=== PATIENT | female | born 1965 | race Caucasian/White ===

== ENCOUNTER 2018-04-16 21:42 | Emergency (ER) | payer SELFPAY ==
--- NOTE | 2018-04-16 22:49 | ER Document Report ---
ED General - General Chief Complaint: Dizziness Stated Complaint: BLURRED VISION,DIZZY Time Seen by Provider: 04/16/18 22:44 Mode of Arrival: Ambulatory Information source: Patient Notes: Patient is a 52-year-old female who presents with chief complaint of chest pain , heaviness in her right arm while cooking dinner as well as some transient blurred vision. Patient reports that over the last few days she has been having random numbness and tingling to her bilateral legs as well as shortness of breath and midsternal chest pain. Patient reports she has not seen a physician in quite some time. Patient reports that her only past medical history is hypothyroidism for which she used to take Synthroid. Patient reports that the last doctor she saw 2 years ago took her off of the Synthroid is reported that she does not need to take it anymore. Patient denies any cardiac history. Patient reports smoking half a pack a day. TRAVEL OUTSIDE OF THE [place] IN LAST 30 DAYS: No COUNTRY TRAVELED TO/FROM: N - Related Data Allergies/Adverse Reactions: morphine Allergy (Verified 04/16/18 21:48) Past Medical History - General Information source: Patient - Social History Smoking Status: Current Every Day Smoker Chew tobacco use (# tins/day): No Frequency of alcohol use: Rare Drug Abuse: None Lives with: Family Family History: Reviewed & Not Pertinent Patient has suicidal ideation: No Patient has homicidal ideation: No Endocrine Medical History: Reports: Hx Hypothyroidism Renal/ Medical History: Denies: Hx Peritoneal Dialysis Past Surgical History: Reports: Hx Appendectomy, Hx Tubal Ligation - Immunizations Immunizations up to date: Yes Review of Systems - Review of Systems Constitutional: See HPI EENT: No symptoms reported Cardiovascular: No symptoms reported Respiratory: See HPI Gastrointestinal: See HPI Genitourinary: No symptoms reported Female Genitourinary: No symptoms reported Musculoskeletal: No symptoms reported Skin: No symptoms reported Hematologic/Lymphatic: No symptoms reported Neurological/Psychological: No symptoms reported Physical Exam - Vital signs Vitals: Temp Pulse Resp BP Pulse Ox 98.5 F 109 H 21 H 121/86 H 97 04/16/18 21:51 04/16/18 21:51 04/16/18 21:51 04/16/18 21:51 04/16/18 21:51 - Notes Notes: PHYSICAL EXAMINATION: GENERAL: Well-appearing, well-nourished and in no acute distress. HEAD: Atraumatic, normocephalic. EYES: Pupils equal round and reactive to light, extraocular movements intact, conjunctiva are normal. ENT: Nares patent, oropharynx clear without exudates. Moist mucous membranes. NECK: Normal range of motion, supple without lymphadenopathy LUNGS: Breath sounds clear to auscultation bilaterally and equal. No wheezes rales or rhonchi. HEART: Regular rate and rhythm without murmurs ABDOMEN: Soft, nontender, nondistended abdomen. No guarding, no rebound. No masses appreciated. Female : deferred Musculoskeletal: Normal range of motion, no pitting or edema. No cyanosis. NEUROLOGICAL: Cranial nerves grossly intact. Normal speech, normal gait. Normal sensory, motor exams PSYCH: Normal mood, normal affect. SKIN: Warm, Dry, normal turgor, no rashes or lesions noted. Course - Re-evaluation Re-evalutation: Otherwise healthy 52-year-old female presents with multiple complaints, see HPI. On my evaluation, patient is alert, oriented and not in any distress. Physical examination is unremarkable. Patient will have chest pain workup done and I will also add on a TSH as patient reports she was taken off of her Synthroid 2 years ago. Given patient's vague symptoms of transient blurred vision yesterday as well as heaviness in her right arm with intermittent tingling to her legs over the last few days, I am suspicious that her TSH may be elevated. Initial EKG is a sinus rhythm with a rate of 71, right bundle branch block. We do not have an old EKG on file. Dr. Holt is requesting a right-sided EKG. Right-sided EKG done and there is no change. Patient currently chest pain- free. Laboratory workup reveals a normal CBC, normal comprehensive metabolic panel, first troponin is negative. Urinalysis is unremarkable for any signs of infection. TSH is 10.4. Plan to check a delta troponin. Patient does remain chest pain-free, patient has has not had any chest pain since she checked into the department. Repeat troponin is also negative. Patient's heart score is 1. Patient will be discharged home in stable condition with plans to follow-up with primary care regarding her elevation in her TSH. Patient's vital signs have been stable during her stay and patient is in agreement with this plan. Patient denies any questions or concerns. - Vital Signs Vital signs: Temp Pulse Resp BP Pulse Ox 98.6 F 88 16 118/72 98 04/17/18 05:23 04/17/18 05:23 04/17/18 05:23 04/17/18 05:23 04/17/18 05:23 - Laboratory Result Diagrams: 04/16/18 23:21 04/16/18 23:59 Laboratory results interpreted by me: 04/16/18 04/16/18 04/16/18 23:21 23:59 23:59 WBC 11.6 H Basophils % 2.4 H Absolute Basophils 0.3 H Chloride 112 H TSH 10.40 H Discharge - Discharge Clinical Impression: Dizzy Chest pain Qualifiers: Chest pain type: unspecified Qualified Code(s): R07.9 - Chest pain, unspecified Condition: Stable Disposition: HOME, SELF-CARE Additional Instructions: Chest Pain of Unclear Cause The exact cause of your chest pain isn't clear. Fortunately, there is no evidence of a dangerous medical condition. Further testing may be required to find the source of the pain. Most often, we find that this pain is coming from the chest wall -- the muscles or rib joints in the chest. But chest pain can come from the lung and lung lining, the esophagus, the heart valves or heart lining, and even the stomach or gallbladder. Rest. Eat lightly until the pain is gone. We may prescribe medicine for pain and inflammation. You should call the physician immediately if the pain radiates to the shoulder, jaw or arms; if you start to run a fever or develop a cough; or if you develop shortness of breath, or other new or alarming symptoms. Your TSH level today was elevated. This is your thyroid-stimulating hormone. It is very important that you follow-up with a primary care provider for further evaluation of this issue may need to be placed back on your Synthroid medication that you were taken off of 2 years ago. Please return to the emergency department for any further concerns. Referrals: [facility] [NO LOCAL MD] - Follow up as needed [facility] [Provider Group] - Follow up as needed
[2018-04-16] MEDS ORDERED: NORMAL SALINE 1000 ML 1,000 ML IV ONE (22:50)
[2018-04-16 23:40] LABS: ABSOLUTE BASOPHILS # (AUTO) 0.3 10^3/uL (0.0-0.2); ABSOLUTE EOSINOPHILS # (AUTO) 0.4 10^3/uL (0.0-0.6); ABSOLUTE MONOCYTES (AUTO) 1.1 10^3/uL (0.1-1.4); ABSOLUTE NEUT (AUTO) 5.8 10^3/uL (1.7-8.2); BASOPHILS % (AUTO) 2.4 % (0-2); EOSINOPHILS % (AUTO) 3.1 % (0-6); HEMATOCRIT 43.7 % (36.0-47.0); HEMOGLOBIN 14.9 g/dL (12.0-15.5); LYMPHOCYTES % (AUTO) 34.9 % (13-45); MEAN CORPUSCULAR HEMOGLOBIN 30.7 pg (27.0-33.4); MEAN CORPUSCULAR HGB CONC 34.2 g/dL (32.0-36.0); MEAN CORPUSCULAR VOLUME 90 fl (80-97); MONOCYTES % (AUTO) 9.2 % (3-13); PLATELET COUNT 278 10^3/uL (150-450); RED BLOOD COUNT 4.87 10^6/uL (3.72-5.28); RED CELL DISTRIBUTION WIDTH 13.5 % (11.5-14.0); SEGMENTED NEUTROPHILS % (AUTO) 50.4 % (42-78); TOTAL CELLS COUNTED % (AUTO) 100 %; WHITE BLOOD COUNT 11.6 10^3/uL (4.0-10.5)
[2018-04-16 23:51] LABS: APPEARANCE,URINE SLIGHTLY-CLOUDY; BILIRUBIN,URINE NEGATIVE (NEGATIVE); COLOR,URINE YELLOW; GLUCOSE, URINE NEGATIVE (NEGATIVE); KETONES,URINE NEGATIVE (NEGATIVE); LEUKOCYTE ESTERASE,URINE NEGATIVE (NEGATIVE); NITRITE,URINE NEGATIVE (NEGATIVE); PROTEIN,URINE NEGATIVE (NEGATIVE); URINE SPECIFIC GRAVITY 1.013; UROBILINOGEN,URINE NEGATIVE mg/dL (<2.0)
[2018-04-17 00:29] LABS: ALANINE AMINOTRANSFERASE 18 U/L (9-52); ALBUMIN 3.7 g/dL (3.5-5.0); ALKALINE PHOSPHATASE 91 U/L (38-126); ANION GAP 8 (5-19); ASPARTATE AMINO TRANSFERASE 18 U/L (14-36); BILIRUBIN,DIRECT 0.3 mg/dL (0.0-0.4); BILIRUBIN,TOTAL 0.3 mg/dL (0.2-1.3); BLOOD UREA NITROGEN 9 mg/dL (7-20); CALCIUM 9.5 mg/dL (8.4-10.2); CARBON DIOXIDE 22 mmol/L (22-30); CHLORIDE 112 mmol/L (98-107); CREATINE KINASE 35 U/L (30-135); GLUCOSE 91 mg/dL (75-110); POTASSIUM 4.4 mmol/L (3.6-5.0); SODIUM 141.9 mmol/L (137-145); TOTAL PROTEIN 6.6 g/dL (6.3-8.2)
[2018-04-17 01:12] LABS: CREATINE KINASE MB 0.23 ng/mL (<4.55)
[2018-04-17 01:17] LABS: TROPONIN I < 0.012 ng/mL
[2018-04-17 05:24] VITALS: BP 118/72
--- NOTE | 2018-04-17 21:40 | EKG REPORT ---
SEVERITY:- ABNORMAL ECG - SINUS RHYTHM RIGHT BUNDLE BRANCH BLOCK : Confirmed by: Lamar Lisa MD 17-Apr-2018 21:39:32
--- NOTE | 2018-04-17 21:41 | EKG REPORT ---
SEVERITY:- ABNORMAL ECG - SINUS RHYTHM RBBB AND LPFB : Confirmed by: Lamar Lisa MD 17-Apr-2018 21:40:48
--- NOTE | 2018-04-17 21:41 | EKG REPORT ---
SEVERITY:- ABNORMAL ECG - SINUS RHYTHM PROBABLE LEFT ATRIAL ABNORMALITY RBBB AND LPFB : Confirmed by: Lamar Lisa MD 17-Apr-2018 21:41:08
== END 2018-04-17 05:26 | disposition home or self-care (01) ==
LOC: ER 21:42
DX: R07.9 Chest pain, unspecified (principal); R94.6 Abnormal results of thyroid function studies; H53.8 Other visual disturbances; R20.0 Anesthesia of skin; R20.2 Paresthesia of skin; R06.02 Shortness of breath; I45.10 Unspecified right bundle-branch block; F17.200 Nicotine dependence, unspecified, uncomplicated; Z88.5 Allergy status to narcotic agent; Z86.39 Personal history of other endocrine, nutritional and metabolic disease
CPT/HCPCS: 93005 ×2; 99285; 36415; 82553; 82962; 82550; 84443; 85025; 80053; 81001; 84484; 93010 ×2; J7030

== ENCOUNTER → 2018-09-26 | Outpatient (CLI) | payer MEDICAID, OTHER ==
[2018-09-26 16:26] LABS: ABSOLUTE BASOPHILS # (AUTO) 0.2 10^3/uL (0.0-0.2); ABSOLUTE EOSINOPHILS # (AUTO) 0.4 10^3/uL (0.0-0.6); ABSOLUTE LYMPHOCYTES (AUTO) 3.1 10^3/uL (0.5-4.7); ABSOLUTE MONOCYTES (AUTO) 0.9 10^3/uL (0.1-1.4); ABSOLUTE NEUT (AUTO) 5.4 10^3/uL (1.7-8.2); BASOPHILS % (AUTO) 2.3 % (0-2); HEMATOCRIT 41.9 % (36.0-47.0); LYMPHOCYTES % (AUTO) 30.7 % (13-45); MEAN CORPUSCULAR HEMOGLOBIN 29.9 pg (27.0-33.4); MEAN CORPUSCULAR HGB CONC 33.4 g/dL (32.0-36.0); MEAN CORPUSCULAR VOLUME 89 fl (80-97); MONOCYTES % (AUTO) 9.1 % (3-13); PLATELET COUNT 264 10^3/uL (150-450); RED BLOOD COUNT 4.69 10^6/uL (3.72-5.28); RED CELL DISTRIBUTION WIDTH 14.4 % (11.5-14.0); SEGMENTED NEUTROPHILS % (AUTO) 53.9 % (42-78); TOTAL CELLS COUNTED % (AUTO) 100 %
== END ==
LOC: CCC 15:58
DX: E03.9 Hypothyroidism, unspecified (principal)
CPT/HCPCS: 36415; 84443; 85025

== ENCOUNTER 2018-10-31 12:03 | Emergency (ER) | payer SELFPAY ==
[2018-10-31] MEDS ORDERED: ASPIRIN 81 MG TABLET, CHEWABLE PO ONE (12:24)
--- NOTE | 2018-10-31 12:24 | ER Document Report ---
ED Medical Screen (RME) - General Chief Complaint: Chest Pain Stated Complaint: CHEST PAIN Time Seen by Provider: 10/31/18 12:17 Primary Care Provider: DICK NASH [Primary Care Provider] - Follow up as needed Mode of Arrival: Ambulatory Information source: Patient Notes: This is a 53-year-old female with a history of hypothyroidism, right bundle branch block who presents to the emergency room with constant retrosternal bandlike chest pressure since yesterday. She denies shortness of breath. She denies abdominal pain. She denies nausea. She denies any change with eating. She had garlic toast this morning without difficulty. Discomfort does not seem to be worsened with activity. Patient does have a history of having discomfort like this in the past last summer and had a cardiac workup in [place] which she reports was essentially normal. TRAVEL OUTSIDE OF THE [place] IN LAST 30 DAYS: No COUNTRY TRAVELED TO/FROM: N - Related Data Allergies/Adverse Reactions: morphine Allergy (Verified 04/16/18 21:48) Past Medical History Endocrine Medical History: Reports: Hx Hypothyroidism Renal/ Medical History: Denies: Hx Peritoneal Dialysis Past Surgical History: Reports: Hx Appendectomy, Hx Tubal Ligation - Immunizations Immunizations up to date: Yes Physical Exam - Vital signs Vitals: Temp Pulse Resp BP Pulse Ox 98.6 F 78 16 125/75 98 10/31/18 12:13 10/31/18 12:13 10/31/18 12:13 10/31/18 12:13 10/31/18 12:13 Course - Vital Signs Vital signs: Temp Pulse Resp BP Pulse Ox 98.6 F 78 16 125/75 98 10/31/18 12:13 10/31/18 12:13 10/31/18 12:13 10/31/18 12:13 10/31/18 12:13 Doctor's Discharge - Discharge Referrals: [facility] [Primary Care Provider] - Follow up as needed
[2018-10-31 13:09] LABS: ABSOLUTE BASOPHILS # (AUTO) 0.2 10^3/uL (0.0-0.2); ABSOLUTE EOSINOPHILS # (AUTO) 0.4 10^3/uL (0.0-0.6); ABSOLUTE LYMPHOCYTES (AUTO) 3.3 10^3/uL (0.5-4.7); ABSOLUTE MONOCYTES (AUTO) 0.8 10^3/uL (0.1-1.4); ABSOLUTE NEUT (AUTO) 5.1 10^3/uL (1.7-8.2); BASOPHILS % (AUTO) 2.5 % (0-2); EOSINOPHILS % (AUTO) 3.6 % (0-6); HEMOGLOBIN 15.4 g/dL (12.0-15.5); LYMPHOCYTES % (AUTO) 33.5 % (13-45); MEAN CORPUSCULAR HGB CONC 34.3 g/dL (32.0-36.0); MEAN CORPUSCULAR VOLUME 90 fl (80-97); MONOCYTES % (AUTO) 8.5 % (3-13); PLATELET COUNT 302 10^3/uL (150-450); RED BLOOD COUNT 4.98 10^6/uL (3.72-5.28); SEGMENTED NEUTROPHILS % (AUTO) 51.9 % (42-78); TOTAL CELLS COUNTED % (AUTO) 100 %; WHITE BLOOD COUNT 9.8 10^3/uL (4.0-10.5)
[2018-10-31 13:26] LABS: ALANINE AMINOTRANSFERASE 37 U/L (9-52); ALBUMIN 4.5 g/dL (3.5-5.0); ALKALINE PHOSPHATASE 105 U/L (38-126); ANION GAP 7 (5-19); ASPARTATE AMINO TRANSFERASE 52 U/L (14-36); BILIRUBIN,DIRECT 0.3 mg/dL (0.0-0.4); BILIRUBIN,TOTAL 0.4 mg/dL (0.2-1.3); BLOOD UREA NITROGEN 9 mg/dL (7-20); CALCIUM 10.4 mg/dL (8.4-10.2); CARBON DIOXIDE 26 mmol/L (22-30); CHLORIDE 109 mmol/L (98-107); CREATINE KINASE 59 U/L (30-135); GLUCOSE 98 mg/dL (75-110); POTASSIUM 4.5 mmol/L (3.6-5.0); SODIUM 142.1 mmol/L (137-145); TOTAL PROTEIN 7.3 g/dL (6.3-8.2)
--- NOTE | 2018-10-31 13:30 | RADIOLOGY REPORT (SQ) ---
EXAM DESCRIPTION: CHEST SINGLE VIEW COMPLETED DATE/TIME: 10/31/2018 1:21 pm REASON FOR STUDY: chest pain COMPARISON: None. EXAM PARAMETERS: NUMBER OF VIEWS: One view. TECHNIQUE: Single frontal radiographic view of the chest acquired. RADIATION DOSE: NA LIMITATIONS: None. FINDINGS: LUNGS AND PLEURA: There is opacification in the medial right base. MEDIASTINUM AND HILAR STRUCTURES: No masses. Contour normal. HEART AND VASCULAR STRUCTURES: Heart normal in size. Normal vasculature. BONES: No acute findings. HARDWARE: None in the chest. OTHER: No other significant finding. IMPRESSION: Cannot exclude limited right lower lobe pneumonia versus atelectasis. TECHNICAL DOCUMENTATION: JOB ID: [id number] [employer]- All Rights Reserved Reading location - IP/workstation name: [email or web address]
[2018-10-31 13:35] LABS: CREATINE KINASE MB 1.69 ng/mL (<4.55)
[2018-10-31 13:43] LABS: TROPONIN I 0.265 ng/mL
[2018-10-31] MEDS ORDERED: NITROGLYCERIN 2% OINTMENT 1 GM PACKET TP ONE (14:32)
[2018-10-31] MEDS ORDERED: HEPARIN SODIUM,PORCINE/D5W 25,000 UNIT/250 ML RTUINJ IV PRN (14:33)
[2018-10-31] MEDS ORDERED: HEPARIN SOD (PORCINE) 1,000 UNIT/ML 10 ML VIAL IV ONE (14:33)
--- NOTE | 2018-10-31 14:37 | ER Document Report ---
ED Cardiac - General Chief Complaint: Chest Pain Stated Complaint: CHEST PAIN Time Seen by Provider: 10/31/18 12:17 Primary Care Provider: [facility] [NO LOCAL MD] - Follow up as needed Mode of Arrival: Ambulatory Notes: 53-year-old female to the emergency department chief complaint of chest pain.Central chest, heavy pressure. Pain in both arms. Has had ths before about 6 mosths ago and w/u. Seen at [facility]. Referred here. Reportedly had a workup done in [place] recently for this. Denies any other major symptoms at this time. Patient does smoke. Does have obesity. Strong family history with father dying early 60s of a mass coronary. Brothers have arterial sclerosis as well. TRAVEL OUTSIDE OF THE [place] IN LAST 30 DAYS: No COUNTRY TRAVELED TO/FROM: [facility] Patient complains to provider of: Chest pain, Chest tightness Was the onset of pain: Gradual Chest pain location: Substernal, Back Quality of pain: Constant, Heaviness Chest pain radiation location: Back Severity now: Moderate Severity at worst: Moderate Pain level currently: 3 Cardiac risk factors: Smoker, + Family history Associated symptoms: None - Related Data Allergies/Adverse Reactions: morphine Allergy (Verified 04/16/18 21:48) Past Medical History - General Information source: Patient - Social History Smoking Status: Current Every Day Smoker Cigarette use (# per day): Yes Frequency of alcohol use: None Drug Abuse: None Lives with: Family Family History: CAD Patient has suicidal ideation: No Patient has homicidal ideation: No Endocrine Medical History: Reports: Hx Hypothyroidism Renal/ Medical History: Denies: Hx Peritoneal Dialysis Past Surgical History: Reports: Hx Appendectomy, Hx Tubal Ligation - Immunizations Immunizations up to date: Yes Review of Systems - Review of Systems Notes: Constitutional: denies: Chills, Diaphoresis, Fever, Malaise, Weakness EENT: denies: Eye discharge, Blurred vision, Tearing, Double vision, Nose congestion, Nose discharge, Throat swelling, Mouth pain Cardiovascular: denies: Palpitations, Heart racing, Orthopnea, Dyspnea, + Chest pain Respiratory: denies: Cough, Hurts to breathe, Wheezing, Shortness of breath Gastrointestinal: denies: Abdominal pain, Diarrhea, Nausea, Vomiting, Black stools, bright red blood in stool Genitourinary: denies: Burning, Dysuria, Discharge, Frequency, Flank pain, He maturia Musculoskeletal: denies: Joint pain, Joint swelling, Muscle pain, Muscle stiffness, back pain Hematologic/Lymphatic: denies: Anemia, Easy bleeding, Easy bruising, Blood clots Neurological/Psychological: denies: Confusion, Dementia, Depression, Loss of consciousness Skin: No lesions, no masses, no skin breakdown, no abscesses Physical Exam - Vital signs Vitals: Temp Pulse Resp BP Pulse Ox 98.6 F 78 16 125/75 98 10/31/18 12:13 10/31/18 12:13 10/31/18 12:13 10/31/18 12:13 10/31/18 12:13 Interpretation: Normal - General General appearance: Appears well, Alert - HEENT Head: Normocephalic, Atraumatic Eyes: Normal Pupils: PERRL - Respiratory Respiratory status: No respiratory distress Chest status: Nontender Breath sounds: Normal Chest palpation: Normal - Cardiovascular Rhythm: Regular Heart sounds: Normal auscultation Murmur: No - Abdominal Inspection: Normal Distension: No distension Bowel sounds: Normal Tenderness: Nontender Organomegaly: No organomegaly - Back Back: Normal, Nontender - Extremities General upper extremity: Normal inspection, Nontender, Normal color, Normal ROM, Normal temperature General lower extremity: Normal inspection, Nontender, Normal color, Normal ROM, Normal temperature, Normal weight bearing. No: Elio's sign - Neurological Neuro grossly intact: Yes Cognition: Normal Orientation: AAOx4 Mere Coma Scale Eye Opening: Spontaneous Mere Coma Scale Verbal: Oriented [place] Coma Scale Motor: Obeys Commands Mere Coma Scale Total: 15 Speech: Normal Motor strength normal: LUE, RUE, LLE, RLE Sensory: Normal - Psychological Associated symptoms: Normal affect, Normal mood - Skin Skin Temperature: Warm Skin Moisture: Dry Skin Color: Normal Course - Re-evaluation Re-evalutation: 10/31/18 14:40 At this time definitely concerning based on the fact the patient's cardiac troponin is 0.2. Prior cardiac troponins done here were unremarkable. Does have some ST depression in the anterior leads V3. Starting her on heparin. Will place nitro paste on. I believe that at this time patient would benefit from transfer as would likely this does represent a need for possible intervention. As well as this persistent ongoing chest pressure and ST depression with T wave inversions she would meet criteria for potential transfer. 10/31/18 14:41 Laboratory 10/31/18 10/31/18 10/31/18 12:52 12:52 12:52 WBC 9.8 RBC 4.98 Hgb 15.4 Hct 45.0 MCV 90 MCH 31.0 MCHC 34.3 RDW 14.0 Plt Count 302 Seg Neutrophils % 51.9 Lymphocytes % 33.5 Monocytes % 8.5 Eosinophils % 3.6 Basophils % 2.5 H Absolute Neutrophils 5.1 Absolute Lymphocytes 3.3 Absolute Monocytes 0.8 Absolute Eosinophils 0.4 Absolute Basophils 0.2 Sodium 142.1 Potassium 4.5 Chloride 109 H Carbon Dioxide 26 Anion Gap 7 BUN 9 Creatinine 0.78 Est GFR ( Amer) > 60 Est GFR (Non-Af Amer) > 60 Glucose 98 Calcium 10.4 H Total Bilirubin 0.4 Direct Bilirubin 0.3 Neonat Total Bilirubin Not Reportable Neonat Direct Bilirubin Not Reportable Neonat Indirect Bili Not Reportable AST 52 H ALT 37 Alkaline Phosphatase 105 Creatine Kinase 59 CK-MB (CK-2) 1.69 Troponin I 0.265 Total Protein 7.3 Albumin 4.5 Chest X-Ray 10/31/18 12:24 IMPRESSION: Cannot exclude limited right lower lobe pneumonia versus atelectasis. 10/31/18 15:42 Patient has been accepted at [facility]. Dr. Cope accepting. Ending transfer at this time. 10/31/18 18:11 Second troponin has doubled. Still pending transport. 10/31/18 19:48 Patient remained stable for transport at this time. - Vital Signs Vital signs: Temp Pulse Resp BP Pulse Ox 98.6 F 78 18 115/89 H 98 10/31/18 12:13 10/31/18 12:13 10/31/18 16:01 10/31/18 16:00 10/31/18 16:01 - Laboratory Result Diagrams: 10/31/18 12:52 10/31/18 12:52 Laboratory results interpreted by ma: 10/31/18 10/31/18 10/31/18 12:52 12:52 12:52 Basophils % 2.5 H PT 11.3 L Chloride 109 H Calcium 10.4 H AST 52 H Ur Leukocyte Esterase 10/31/18 15:40 Basophils % PT Chloride Calcium AST Ur Leukocyte Esterase TRACE H - EKG Interpretation by Md EKG shows normal: Sinus rhythm, Intervals, QRS Complexes. abnormal: ST-T Waves - Patient has had some T wave inversion in V2, V3, V4. Does have about [address] depression in the anterior lead number V3. Right bundle branch block unchanged from prior right bundle branch block EKG. [place]/QRS: RBBB Critical Care Note - Critical Care Note Total time excluding time spent on procedures (mins): 45 Comments: Bedside assessment, direct medical intervention, consultation with specialist, coordination of transfer of care Discharge - Discharge Clinical Impression: Acute coronary syndrome, Elevated troponin I level Condition: Good Disposition: [facility] [NO [facility]AL MD] - Follow up as needed
[2018-10-31 14:52] LABS: INTERNATIONAL RATION (INR) 0.78; PROTHROMBIN TIME 11.3 SEC (11.4-15.4)
[2018-10-31 14:53] LABS: PARTIAL THROMBOPLASTIN TIME 32.6 SEC (23.5-35.8)
[2018-10-31 16:22] LABS: APPEARANCE,URINE SLIGHTLY-CLOUDY; BILIRUBIN,URINE NEGATIVE (NEGATIVE); COLOR,URINE YELLOW; GLUCOSE, URINE NEGATIVE (NEGATIVE); KETONES,URINE NEGATIVE (NEGATIVE); LEUKOCYTE ESTERASE,URINE TRACE (NEGATIVE); NITRITE,URINE NEGATIVE (NEGATIVE); PROTEIN,URINE NEGATIVE (NEGATIVE); URINE SPECIFIC GRAVITY 1.013; UROBILINOGEN,URINE NEGATIVE mg/dL (<2.0)
[2018-10-31] MEDS ORDERED: HEPARIN SOD (PORCINE) 1,000 UNIT/ML 10 ML VIAL IV PRN (17:33)
[2018-10-31] MEDS ORDERED: ATORVASTATIN CALCIUM 40 MG TABLET PO ONE (18:11)
[2018-10-31 20:21] VITALS: BP 119/75
--- NOTE | 2018-10-31 21:06 | EKG REPORT ---
SEVERITY:- ABNORMAL ECG - SINUS RHYTHM RBBB AND LPFB : Confirmed by: Lamar Lisa MD 31-Oct-2018 21:05:33
--- NOTE | 2018-10-31 21:06 | EKG REPORT ---
SEVERITY:- ABNORMAL ECG - SINUS RHYTHM RBBB AND LPFB : Confirmed by: Lamar Lisa MD 31-Oct-2018 21:05:41
== END 2018-10-31 20:21 | disposition short-term general hospital (02) ==
LOC: ER 12:03
DX: I24.9 Acute ischemic heart disease, unspecified (principal); R79.89 Other specified abnormal findings of blood chemistry; R07.9 Chest pain, unspecified; M79.602 Pain in left arm; M79.601 Pain in right arm; F17.210 Nicotine dependence, cigarettes, uncomplicated; Z88.6 Allergy status to analgesic agent; Z98.51 Tubal ligation status
CPT/HCPCS: 93005; 99291; 96365; 96366; 36415; 82553; 82550; 85025; 85610; 85730; 80053; 81001; 84484; 83880; 71045; 93010; J1644 ×2

== ENCOUNTER → 2019-02-27 | Outpatient (CLI) | payer OTHER ==
[2019-02-27 09:45] LABS: ABSOLUTE BASOPHILS # (AUTO) 0.2 10^3/uL (0.0-0.2); ABSOLUTE EOSINOPHILS # (AUTO) 0.4 10^3/uL (0.0-0.6); ABSOLUTE LYMPHOCYTES (AUTO) 3.5 10^3/uL (0.5-4.7); ABSOLUTE MONOCYTES (AUTO) 0.9 10^3/uL (0.1-1.4); ABSOLUTE NEUT (AUTO) 4.4 10^3/uL (1.7-8.2); BASOPHILS % (AUTO) 2.1 % (0-2); EOSINOPHILS % (AUTO) 4.4 % (0-6); HEMATOCRIT 43.7 % (36.0-47.0); HEMOGLOBIN 14.6 g/dL (12.0-15.5); LYMPHOCYTES % (AUTO) 37.1 % (13-45); MEAN CORPUSCULAR HEMOGLOBIN 30.4 pg (27.0-33.4); MEAN CORPUSCULAR HGB CONC 33.4 g/dL (32.0-36.0); MEAN CORPUSCULAR VOLUME 91 fl (80-97); MONOCYTES % (AUTO) 9.4 % (3-13); PLATELET COUNT 266 10^3/uL (150-450); RED BLOOD COUNT 4.79 10^6/uL (3.72-5.28); TOTAL CELLS COUNTED % (AUTO) 100 %; WHITE BLOOD COUNT 9.4 10^3/uL (4.0-10.5)
[2019-02-27 09:55] LABS: ALANINE AMINOTRANSFERASE 8 U/L (9-52); ALBUMIN 3.9 g/dL (3.5-5.0); ALKALINE PHOSPHATASE 86 U/L (38-126); ANION GAP 7 (5-19); ASPARTATE AMINO TRANSFERASE 17 U/L (14-36); BILIRUBIN,DIRECT 0.3 mg/dL (0.0-0.4); BILIRUBIN,TOTAL 0.4 mg/dL (0.2-1.3); BLOOD UREA NITROGEN 11 mg/dL (7-20); CALCIUM 10.5 mg/dL (8.4-10.2); CARBON DIOXIDE 26 mmol/L (22-30); CHLORIDE 112 mmol/L (98-107); CHOLESTEROL 107.77 mg/dL (0-200); GLUCOSE 89 mg/dL (75-110); POTASSIUM 5.1 mmol/L (3.6-5.0); SODIUM 145.4 mmol/L (137-145); TOTAL PROTEIN 6.7 g/dL (6.3-8.2); TRIGLYCERIDES 130 mg/dL (<150)
[2019-02-27 10:06] LABS: DIRECT LDL 53 mg/dL (<100)
== END ==
LOC: CCC 08:38
DX: H81.399 Other peripheral vertigo, unspecified ear (principal)
CPT/HCPCS: 36415; 80053; 80061; 83036; 84443; 85025

== ENCOUNTER 2019-02-28 19:54 | Emergency (ER) | payer OTHER ==
[2019-02-28] MEDS ORDERED: DEXAMETHASONE SOD PHOS INJ 10 MG/1 ML VIAL IV ONE (23:00)
--- NOTE | 2019-02-28 23:16 | ER Document Report ---
ED Medical Screen (RME) - General Chief Complaint: Other Stated Complaint: FOLLOW UP Time Seen by Provider: 02/28/19 22:48 Primary Care Provider: DICK NASH [Primary Care Provider] - Follow up as needed Notes: 53-year-old female comes to the emergency department for chief complaint of abnormal MRI. She states she had the MRI performed, she was told to come the emergency department afterwards. She is unsure of the results. She had an MRI performed by her primary provider because of symptoms of dizziness and instability going on for about 2 months now. TRAVEL OUTSIDE OF THE [place] IN LAST 30 DAYS: No - Related Data Allergies/Adverse Reactions: morphine Allergy (Verified 04/16/18 21:48) Past Medical History Endocrine Medical History: Reports: Hx Hypothyroidism Renal/ Medical History: Denies: Hx Peritoneal Dialysis Past Surgical History: Reports: Hx Appendectomy, Hx Tubal Ligation - Immunizations Immunizations up to date: Yes Physical Exam - Vital signs Vitals: Temp Pulse Resp BP Pulse Ox 98.5 F 58 L 20 105/72 96 02/28/19 19:57 02/28/19 19:57 02/28/19 19:57 02/28/19 19:57 02/28/19 19:57 - General General appearance: Appears well In distress: None - Neurological Orientation: AAOx4 [place] Coma Scale Eye Opening: Spontaneous Mere Coma Scale Verbal: Oriented Mere Coma Scale Motor: Obeys Commands [place] Coma Scale Total: 15 Course - Re-evaluation Re-evalutation: 02/28/19 23:00 I did call and speak with radiology partners, requested a stat read on the MRI I have greeted and performed a rapid initial assessment of this patient. A comprehensive ED assessment and evaluation of the patient, analysis of test results and completion of the medical decision making process will be conducted by additional ED providers. - Vital Signs Vital signs: Temp Pulse Resp BP Pulse Ox 98.5 F 58 L 20 105/72 96 02/28/19 19:57 02/28/19 19:57 02/28/19 19:57 02/28/19 19:57 02/28/19 19:57 Doctor's Discharge - Discharge Referrals: DICK NASH [Primary Care Provider] - Follow up as needed
--- NOTE | 2019-02-28 23:50 | ER Document Report ---
ED General - General Chief Complaint: Other Stated Complaint: FOLLOW UP Time Seen by Provider: 02/28/19 22:48 Primary Care Provider: [facility] [Primary Care Provider] - Follow up as needed Notes: Patient is a 53-year-old female who presents with complaint of being sent here after an MRI performed. She is unsure what the results are. Said her doctor arrange for an MRI today because she is been having 2 months of intermittent vertigo and some difficulty walking. She says difficulty walking seem to be related to the vertigo itself. No weakness or numbness to extremities. No difficulty breathing or swallowing. No other complaints at this time. She does have history of coronary disease. She does have a stent in place which she thinks she does take a blood thinner for but is not 100% sure. She has history of high blood pressure high cholesterol. No history of diabetes. TRAVEL OUTSIDE OF THE [place] IN LAST 30 DAYS: No - Related Data Allergies/Adverse Reactions: morphine Allergy (Verified 04/16/18 21:48) Past Medical History - Social History Smoking Status: Unknown if Ever Smoked Frequency of alcohol use: None Drug Abuse: None Family History: CAD Patient has suicidal ideation: No Patient has homicidal ideation: No Endocrine Medical History: Reports: Hx Hypothyroidism Renal/ Medical History: Denies: Hx Peritoneal Dialysis Past Surgical History: Reports: Hx Appendectomy, Hx Tubal Ligation - Immunizations Immunizations up to date: Yes Review of Systems - Review of Systems Notes: My Normal Review Basic REVIEW OF SYSTEMS: CONSTITUTIONAL : Denies fever, chills, or sweats. Denies recent illness. RESPIRATORY: Denies cough, cold, or chest congestion. Denies shortness of breath, difficulty breathing, or wheezing. GASTROINTESTINAL: Denies abdominal pain. Denies nausea, vomiting, or diarrhea. MUSCULOSKELETAL: Denies neck or back pain or joint pain or swelling. SKIN: Denies rash or skin lesions. NEUROLOGICAL: Denies altered mental status or loss of consciousness. Denies headache. Denies weakness or paralysis or loss of use of either side. Intermittent difficulty ambulating.. Denies sensory or motor loss. ALL OTHER SYSTEMS REVIEWED AND NEGATIVE. Physical Exam - Vital signs Vitals: Temp Pulse Resp BP Pulse Ox 98.5 F 58 L 20 105/72 96 02/28/19 19:57 02/28/19 19:57 02/28/19 19:57 02/28/19 19:57 02/28/19 19:57 - Notes Notes: General Appearance: Well nourished, alert, cooperative, no acute distress, no obvious discomfort. Vitals: reviewed, See vital signs table. Head: no swelling or tenderness to the head Eyes: PERRL, EOMI, Conjuctiva clear Mouth: No decreasd moisture Lungs: No wheezing, No rales, No rhonci, No accessory muscle use, good air exchange bilaterally. Heart: Normal rate, Regular rythm, No murmur, no rub Extremities: strength 5/5 in all extremities, good pulses in all extremities, no swelling or tenderness in the extremities, no edema. Skin: warm, dry, appropriate color, no rash Neuro: speech clear, oriented x 3, normal affect, responds appropriately to questions. Cranial nerves II through XII are intact. Distal sensation intact. Patient moves all extremities without difficulty. Normal Romberg. Normal gait. Course - Re-evaluation Re-evalutation: 02/28/19 23:53 I have called [facility] requested to speak with the neurosurgeon. They said they will call the neurosurgeon and have him call me back. I did ask our radiology department to push the images of the MRI to [facility] so that the neurosurgeon can look at this. 03/01/19 01:21 I did speak with Dr. Blake, neurosurgeon at [facility]. He says the patient currently does not have any severe symptoms as well appearing than she does have the option of following up in his office this coming week. He came in the office number and said to have her call the office Sunday if she has not yet heard from them. He requested to place her on Decadron 4 mg 3 times daily or Keppra 1000 mg twice daily. Says if the patient has any concerns he is happy to take her as a transfer at this time. Patient currently does not have any neurologic deficits on exam. I did discuss the options with the patient about going home versus being transferred today. Patient says that she has a dog at home and does not want to be transferred. She preferred to go with the outpatient follow-up plan. I informed her that she must have very low threshold to return to ER immediately if she has any difficulty breathing, severe h eadaches, vomiting, worsening of her symptoms, or seizures. Patient agrees with plan and will be discharged home. Dictation of this chart was performed using voice recognition software; therefore, there may be some unintended grammatical errors. - Vital Signs Vital signs: Temp Pulse Resp BP Pulse Ox 98.5 F 58 L 20 105/72 96 02/28/19 19:57 02/28/19 19:57 02/28/19 19:57 02/28/19 19:57 02/28/19 19:57 - Laboratory Result Diagrams: 02/28/19 23:55 02/28/19 23:55 Laboratory results interpreted by me: 02/28/19 02/28/19 02/28/19 23:55 23:55 23:55 Basophils % 2.4 H PT 11.3 L Chloride 112 H Discharge - Discharge Clinical Impression: Brain tumor Condition: Good Disposition: HOME, SELF-CARE Additional Instructions: Your MRI shows evidence of a brain tumor. I did discuss the case with the sabrina brennanurgenikko in [place], Dr. Blake, he requests that you follow-up with him this coming week. He says he will see you either or Sunday. His office number is [phone]. He says if you do not hear from his office by Sunday at lunchtime then you should call his office to receive your follow-up appointment time and day. Please have a very low threshold to return to the ER immediately if you start having headaches, vomiting, any seizure-like activity, or worsening of any of your symptoms. Please take the Keppra and Decadron as prescribed. Keppra may make you little bit sleepy. Please be aware of this when driving. Prescriptions: Dexamethasone [Decadron 4 Mg Tablet] 4 mg PO TID #30 tablet Levetiracetam [Keppra 500 mg Tablet] 1,000 mg PO Q12 #60 tablet Referrals: ELEANOR BLAKE MD [NO LOCAL MD] - (Call office to make follow up appointment)
[2019-03-01 00:12] LABS: ABSOLUTE BASOPHILS # (AUTO) 0.2 10^3/uL (0.0-0.2); ABSOLUTE EOSINOPHILS # (AUTO) 0.4 10^3/uL (0.0-0.6); ABSOLUTE LYMPHOCYTES (AUTO) 2.9 10^3/uL (0.5-4.7); ABSOLUTE MONOCYTES (AUTO) 0.8 10^3/uL (0.1-1.4); ABSOLUTE NEUT (AUTO) 4.5 10^3/uL (1.7-8.2); BASOPHILS % (AUTO) 2.4 % (0-2); EOSINOPHILS % (AUTO) 4.5 % (0-6); HEMATOCRIT 41.2 % (36.0-47.0); HEMOGLOBIN 13.7 g/dL (12.0-15.5); LYMPHOCYTES % (AUTO) 33.5 % (13-45); MEAN CORPUSCULAR HEMOGLOBIN 30.4 pg (27.0-33.4); MEAN CORPUSCULAR HGB CONC 33.2 g/dL (32.0-36.0); MEAN CORPUSCULAR VOLUME 91 fl (80-97); MONOCYTES % (AUTO) 8.8 % (3-13); PLATELET COUNT 247 10^3/uL (150-450); RED BLOOD COUNT 4.51 10^6/uL (3.72-5.28); RED CELL DISTRIBUTION WIDTH 13.7 % (11.5-14.0); SEGMENTED NEUTROPHILS % (AUTO) 50.8 % (42-78); TOTAL CELLS COUNTED % (AUTO) 100 %; WHITE BLOOD COUNT 8.8 10^3/uL (4.0-10.5)
[2019-03-01 00:19] LABS: INTERNATIONAL RATION (INR) 0.78; PROTHROMBIN TIME 11.3 SEC (11.4-15.4)
[2019-03-01 00:20] LABS: PARTIAL THROMBOPLASTIN TIME 31.2 SEC (23.5-35.8)
[2019-03-01 00:30] LABS: ANION GAP 7 (5-19); BLOOD UREA NITROGEN 15 mg/dL (7-20); CALCIUM 10.1 mg/dL (8.4-10.2); CARBON DIOXIDE 23 mmol/L (22-30); CHLORIDE 112 mmol/L (98-107); GLUCOSE 94 mg/dL (75-110); POTASSIUM 4.1 mmol/L (3.6-5.0); SODIUM 141.8 mmol/L (137-145)
[2019-03-01] MEDS ORDERED: LEVETIRACETAM 500 MG TABLET PO ONE (01:17)
[2019-03-01 01:36] VITALS: BP 114/76
== END 2019-03-01 01:36 | disposition home or self-care (01) ==
LOC: ER 19:54
DX: D49.6 Neoplasm of unspecified behavior of brain (principal); R26.2 Difficulty in walking, not elsewhere classified; Z88.6 Allergy status to analgesic agent; E03.9 Hypothyroidism, unspecified; Z98.51 Tubal ligation status; I10 Essential (primary) hypertension; Z79.01 Long term (current) use of anticoagulants
CPT/HCPCS: 36415; 80048; 85025; 85610; 85730; 99283

== ENCOUNTER → 2019-02-28 | Outpatient (CLI) | payer OTHER ==
--- NOTE | 2019-03-01 00:01 | RADIOLOGY REPORT (SQ) ---
EXAM DESCRIPTION: MR BRAIN WITHOUT THEN WITH IV CONTRAST COMPLETED DATE/TME: 02/28/2019 18:28 CLINICAL HISTORY: 53 years, Female, H81.399 OTHER PERIPHERAL VERTIGO, UNSPECIFIED EAR COMPARISON: None. TECHNIQUE: Multiplanar, multisequence MRI of the brain pre and post intravenous administration of gadolinium Images stored on PACS. LIMITATIONS: None. FINDINGS: At the level of the planum sphenoidale is a large focal area of masslike signal intensity with avid postcontrast enhancement. 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 Surrounding the mass within the LEFT frontal lobe is extensive increased T2 signal intensity compatible with vasogenic edema. A very small amount of edema is also noted within the RIGHT frontal lobe. Significant subfalcine herniation is present at the level of the frontal lobe with rightward deviation approximately 17 mm, (series 6, image 16). On postcontrast imaging the mass reveals avid enhancement and measures 4.4 x 4.0 cm in transaxial dimension, (series 10, image 12). In craniocaudal dimension the mass measures 3.7 cm, (series 11, image eight). There is adjacent thickening of the dura and dural tail most notably towards the LEFT along the course of the LEFT inferior frontal lobe. Tiny volume of dural enhancement and dural tail present on the RIGHT. There is severe mass effect on the frontal horns of the bilateral ventricles. The anterior cerebral arteries are grossly patent on T2-weighted imaging with flow voids coursing along the posterior margin of the mass. The proximal anterior cerebral arteries measure approximately 4 mm away from the posterior margin of the mass. The mid through caudal aspect of the anterior cerebral arteries course along posterior aspect, closely marginate the mass. On postcontrast imaging there is overall homogeneous enhancement, however with heterogeneous increased and decreased signal intensity within the cephalad portion of the mass raising the possibility of central necrosis and the possibility of vascular enhancement suggesting increased vascularity. Additionally on postcontrast imaging there appears to be diffuse smoothly enhancing appearance of the dura, a nonspecific finding. No abnormal increased signal intensity is present on diffusion-weighted imaging to suggest restricted diffusion/acute infarction. T2/flair weighted imaging reveals multifocal areas of patchy increased signal intensity present in a subcortical and periventricular deep white matter distribution, a nonspecific finding however may be seen with small vessel ischemic change. Major intracranial flow voids are identified. The paranasal sinuses and mastoid air cells are patent. IMPRESSION: 1. Large extra-axial mass at the level of the bilateral frontal lobes compatible with planum sphenoidale meningioma as detailed above. The possibility of aggressive variant may be considered in the differential. 2. Significant mass effect and edema of the LEFT greater than RIGHT frontal lobes with 17 mm rightward subfalcine herniation and mass effect on the frontal horns of the bilateral ventricles. copyright 2010 [employer]- All Rights Reserved
== END ==
LOC: RAD 18:25
DX: H81.399 Other peripheral vertigo, unspecified ear (principal)
CPT/HCPCS: 82565; 70553; A9576